=== PATIENT | male | born 1960 | race Caucasian/White ===

== ENCOUNTER 2019-06-18 22:54 | Emergency (ER) | payer BC ==
[2019-06-18] MEDS ORDERED: Ketorolac 30 MG/ML SDV IVPUSH ONE (23:50)
[2019-06-18] MEDS ORDERED: Sodium Chloride 0.9% 1,000 ML IV ONE (23:50)
--- NOTE | 2019-06-18 23:54 | EDM.PDOC ---
ED HPI GENERAL MEDICAL PROBLEM - General Chief Complaint: Abdominal Pain Stated Complaint: LEFT LOWER STOMACH PAIN Time Seen by Provider: 06/18/19 23:53 Source of Information: Reports: Patient History Limitations: Reports: No Limitations - History of Present Illness INITIAL COMMENTS - FREE TEXT/NARRATIVE: 58 year-old male who presents the emergency room with a chief complaint of left lower abdominal pain. Patient denies chills and fever but states the pain is been progressively getting worse. Patient has no past medical history of abdominal surgery or any abdominal pain. Patient does state that he urinates a lot. Onset: Today Duration: Day(s): Location: Reports: Abdomen Quality: Reports: Ache Severity: Moderate Improves with: Reports: None Worsens with: Reports: None Associated Symptoms: Reports: No Other Symptoms Left Abdomen Pain Score (Numeric/FACES): 1 - Related Data Allergies Allergy/AdvReac Type Severity Reaction Status Date / Time latex Allergy Rash Verified 06/18/19 23:10 Home Meds: Home Meds . [No Known Home Meds] 06/18/19 [History] Past Medical History - Infectious Disease History Infectious Disease History: Reports: Chicken Pox, Mumps - Past Surgical History HEENT Surgical History: Reports: Oral Surgery Musculoskeletal Surgical History: Reports: Other (See Below) Other Musculoskeletal Surgeries/Procedures:: knee surgery bilaterally Social & Family History - Family History Family Medical History: Noncontributory - Tobacco Use Smoking Status *Q: Former Smoker Used Tobacco, but Quit: Yes Month/Year Tobacco Last Used: 2010 - Caffeine Use Caffeine Use: Reports: Coffee, Energy Drinks, Soda, Tea - Recreational Drug Use Recreational Drug Use: No ED ROS GENERAL - Review of Systems Review Of Systems: See Below Constitutional: Reports: No Symptoms HEENT: Reports: No Symptoms Respiratory: Reports: No Symptoms Cardiovascular: Reports: No Symptoms Endocrine: Reports: No Symptoms GI/Abdominal: Reports: No Symptoms, Abdominal Pain : Reports: No Symptoms Musculoskeletal: Reports: No Symptoms Skin: Reports: No Symptoms Neurological: Reports: No Symptoms Psychiatric: Reports: No Symptoms Hematologic/Lymphatic: Reports: No Symptoms Immunologic: Reports: No Symptoms ED EXAM, GI/ABD - Physical Exam Exam: See Below Text/Narrative:: 58-year-old gentleman who presents the emergency room with a chief complaint of left lower abdominal pain. Patient denies chills and fever. Exam is related mostly to the abdomen. Patient has left lower quadrant pain and tenderness. Minimal guarding negative rebound. Patient has normal active bowel sounds. Patient has negative flank tenderness Problems patient is possible 1. Diverticulitis Possible kidney stone : Possible constipation Possible hernia Plan: We will have a CT scan/UA Exam Limited By: No Limitations General Appearance: Alert, WD/WN, No Apparent Distress Eyes: Bilateral: Normal Appearance Ears: Normal External Exam, Normal Canal, Normal TMs Nose: Normal Inspection, Normal Mucosa Throat/Mouth: Normal Inspection, Normal Lips, Normal Oropharynx, Normal Voice Head: Atraumatic, Normocephalic Neck: Normal Inspection, Supple, Non-Tender Respiratory/Chest: No Respiratory Distress, Lungs Clear, Normal Breath Sounds, No Accessory Muscle Use, Chest Non-Tender Cardiovascular: Normal Peripheral Pulses, Regular Rate, Rhythm, No JVD, No Murmur GI/Abdominal Exam: Normal Bowel Sounds, Tender (Male) Exam: Deferred Rectal (Males) Exam: Deferred Back Exam: Normal Inspection, Full Range of Motion Extremities: Normal Inspection, Normal Range of Motion, No Pedal Edema, Normal Capillary Refill Neurological: Alert, Oriented, Normal Reflexes Psychiatric: Normal Affect, Normal Mood Skin Exam: Warm, Dry, Intact, Normal Color Lymphatic: No Adenopathy Course - Vital Signs Text/Narrative:: This 58-year-old gentleman presented to the emergency room with a chief complaint of abdominal pain left-sided. Patient found to have a white count of 12.7. Patient's electrolytes are normal. Patient's exam shows that he has left -sided abdominal pain and tenderness. Patient has no evidence of rebound. Patient CT scan shows patient has acute diverticulitis. Patient has been afebrile. Patient is awake alert and oriented. Patient has no comorbidities i.e. no history of diabetes, hypertension, immunosuppression. Patient states he is able to take fluids and medication. Patient will be treated with 500 of Flagyl, 500 of Cipro here p.o. And another 500 cc of normal saline. Patient has been given Toradol for pain and a liter of fluid. Repeat exam: Abdomen mildly tender to the left side with no rebound. Patient has no evidence of peritoneal signs or perforation Plan: Patient will be discharged home we will attempt to get the patient clinic appointment with her primary physician Patient instructed to take his antibiotics at home and return for any problem to the ER if unable to keep down fluids or take antibiotics or pain becomes more severe. Diagnosis acute diverticulitis Patient does not meet criteria for inpatient therapy and does not want to be admitted to the hospital. Patient given the option for observation and does not want to be admitted Last Recorded V/S: Last Vital Signs Temp 97.3 F 06/18/19 23:11 Pulse 81 06/19/19 00:59 Resp 16 06/19/19 00:59 BP 117/76 06/19/19 00:59 Pulse Ox 94 L 06/19/19 00:59 - Orders/Labs/Meds Orders: Active Orders 24 hr Category Date Time Status Sodium Chloride 0.9% [Normal Saline] 500 ml Med 06/19/19 01:30 Active IV .BOLUS metroNIDAZOLE/Normal Saline [Flagyl 500 MG in NS 100 ML Med 06/19/19 01:15 Active ] 500 mg Premix Bag 1 bag IV ONETIME Medication Orders Metronidazole 500 mg/ Premix 100 mls @ 100 mls/hr IV ONETIME ONE Stop: 06/19/19 02:14 Sodium Chloride (Normal Saline) 500 mls @ 500 drops/min IV .BOLUS JOSI Labs: Laboratory Tests 06/18/19 06/18/19 06/18/19 Range/Units 23:40 23:49 23:49 WBC 12.73 H (4.0-11.0) K/uL RBC 4.83 (4.50-5.90) M/uL Hgb 15.8 (13.0-17.0) g/dL Hct 45.6 (38.0-50.0) % MCV 94.4 (80.0-98.0) fL MCH 32.7 H (27.0-32.0) pg MCHC 34.6 (31.0-37.0) g/dL RDW Std Deviation 44.0 (28.0-62.0) fl RDW Coeff of Phi 13 (11.0-15.0) % Plt Count 251 (150-400) K/uL MPV 9.80 (7.40-12.00) fL Neut % (Auto) 55.7 (48.0-80.0) % Lymph % (Auto) 34.6 (16.0-40.0) % [place] % (Auto) 7.6 (0.0-15.0) % Eos % (Auto) 1.8 (0.0-7.0) % Baso % (Auto) 0.3 (0.0-1.5) % Neut # (Auto) 7.1 H (1.4-5.7) K/uL Lymph # (Auto) 4.4 H (0.6-2.4) K/uL [place] # (Auto) 1.0 H (0.0-0.8) K/uL Eos # (Auto) 0.2 (0.0-0.7) K/uL Baso # (Auto) 0.0 (0.0-0.1) K/uL Nucleated RBC % 0.0 /100WBC Nucleated RBCs # 0 K/uL Sodium 140 (136-148) mmol/L Potassium 4.5 (3.5-5.1) mmol/L Chloride 101 (98-107) mmol/L Carbon Dioxide 30.3 (21.0-32.0) mmol/L BUN 11 (7.0-18.0) mg/dL Creatinine 1.1 (0.8-1.3) mg/dL Est Cr Clr Drug Dosing 69.95 mL/min Estimated GFR (MDRD) > 60.0 ml/min Glucose 106 (74-106) mg/dL Calcium 8.8 (8.5-10.1) mg/dL Total Bilirubin 0.3 (0.2-1.0) mg/dL AST 20 (15-37) IU/L ALT 32 (14-63) IU/L Alkaline Phosphatase 78 (46-116) U/L Total Protein 7.3 (6.4-8.2) g/dL Albumin 3.8 (3.4-5.0) g/dL Globulin 3.5 (2.6-4.0) g/dL Albumin/Globulin Ratio 1.1 (0.9-1.6) Urine Color YELLOW Urine Appearance CLEAR Urine pH 7.0 (5.0-8.0) Ur Specific [place] 1.020 (1.001-1.035) Urine Protein NEGATIVE (NEGATIVE) mg/dL Urine Glucose (UA) NEGATIVE (NEGATIVE) mg/dL Urine Ketones TRACE H (NEGATIVE) mg/dL Urine Occult Blood NEGATIVE (NEGATIVE) Urine Nitrite NEGATIVE (NEGATIVE) Urine Bilirubin NEGATIVE (NEGATIVE) Urine Urobilinogen 1.0 (<2.0) EU/dL Ur Leukocyte Esterase NEGATIVE (NEGATIVE) Meds: Medications Generic Name Dose Route Start Last Admin Trade Name Freq PRN Reason Stop Dose Admin Metronidazole 500 mg/ Premix 100 mls @ 100 mls/hr 06/19/19 01:15 IV 06/19/19 02:14 ONETIME ONE Sodium Chloride 500 mls @ 500 drops/min 06/19/19 01:30 Normal Saline IV .BOLUS JOSI Discontinued Medications Generic Name Dose Route Start Last Admin Trade Name Freq PRN Reason Stop Dose Admin Ciprofloxacin 500 mg 06/19/19 01:14 Ciprofloxacin Hcl PO 06/19/19 01:15 ONETIME ONE Sodium Chloride 1,000 mls @ 1,000 mls/hr 06/18/19 23:50 06/18/19 23:55 Normal Saline IV 06/19/19 00:49 1,000 mls/hr .Bolus ONE Administration Ketorolac Tromethamine 30 mg 06/18/19 23:50 06/18/19 23:55 Toradol IVPUSH 06/18/19 23:51 30 mg ONETIME ONE Administration Departure - Departure Time of Disposition: 01:48 Disposition: Home, Self-Care 01 Condition: Good Clinical Impression: Diverticulitis large intestine w/o perforation or abscess w/o bleeding - Discharge Information Instructions: Diverticulitis, Diverticulitis, [id number] Referrals: PCP,Not In Area [Ordering Only Provider] - Forms: ED Department Discharge Sepsis Event Note - Evaluation Sepsis Screening Result: No Definite Risk - Focused Exam Vital Signs: Vital Signs Temp Pulse Resp BP Pulse Ox 06/19/19 00:59 81 16 117/76 94 L 06/18/19 23:11 97.3 F 89 18 133/80 94 L Date Exam was Performed: 06/19/19 Time Exam was Performed: 01:42 - My Orders Last 24 Hours: My Active Orders 06/19/19 01:15 metroNIDAZOLE/Normal Saline [Flagyl 500 MG in NS 100 ML] 500 mg Premix Bag 1 bag IV ONETIME 06/19/19 01:30 Sodium Chloride 0.9% [Normal Saline] 500 ml IV .BOLUS - Assessment/Plan Last 24 Hours: My Active Orders 06/19/19 01:15 metroNIDAZOLE/Normal Saline [Flagyl 500 MG in NS 100 ML] 500 mg Premix Bag 1 bag IV ONETIME 06/19/19 01:30 Sodium Chloride 0.9% [Normal Saline] 500 ml IV .BOLUS
[2019-06-19 00:34] LABS: BLOOD UREA NITROGEN,BUN 11 mg/dL (7.0-18.0); CARBON DIOXIDE,CO2 30.3 mmol/L (21.0-32.0); CHLORIDE,CL 101 mmol/L (98-107); GLUCOSE RANDOM 106 mg/dL (74-106); POTASSIUM,K 4.5 mmol/L (3.5-5.1); SODIUM,NA 140 mmol/L (136-148)
--- NOTE | 2019-06-19 00:54 | CT ---
INDICATION: Left flank pain TECHNIQUE: CT abdomen and pelvis without contrast. COMPARISON: None available FINDINGS: The visualized portions of the lung bases are clear. Evaluation of the abdominal viscera is limited due to lack of IV contrast. There are punctate calcifications within the liver and spleen, likely sequelae of prior granulomatous disease. The spleen and pancreas are otherwise unremarkable. Negative for intrahepatic or extrahepatic biliary dilatation. The gallbladder is nondistended. These pancreas and adrenal glands are unremarkable. The kidneys are negative for hydronephrosis or nephrolithiasis. There are multiple colonic diverticuli. There is mild colonic wall thickening of the distal descending colon with surrounding fat stranding, consistent with acute diverticulitis. No drainable fluid collection. No gross perforation is visualized. There are no dilated loops of small bowel to suggest obstruction.The appendix is normal. There are healed fracture deformities of the left lateral lower ribs. The bones are otherwise unremarkable for patient age. IMPRESSION: Acute diverticulitis of the distal descending colon. Negative for gross perforation or drainable fluid collection. Recommend colonoscopy after acute symptoms resolve. Dictated by Kathi Miller MD @ 06/19/2019 12:52:28 AM Please note that all CT scans at this facility use dose modulation, iterative reconstruction, and/or weight-based dosing when appropriate to reduce radiation dose to as low as reasonably achievable. Dictated by: Kathi Miller MD @ 06/19/2019 00:52:46 (Electronically Signed)
[2019-06-19] MEDS ORDERED: Ciprofloxacin 500 MG Tab PO ONE (01:14)
[2019-06-19] MEDS ORDERED: metroNIDAZOLE/Normal Saline 500 MG in Premix Bag 1 BAG IV ONE (01:15)
[2019-06-19] MEDS ORDERED: Sodium Chloride 0.9% 500 ML IV SCH (01:30)
== END 2019-06-19 03:30 | disposition home or self-care (01) ==
LOC: MW.ED 22:54
DX: K57.32 Diverticulitis of large intestine without perforation or abscess without bleeding (principal); Z87.891 Personal history of nicotine dependence; Z91.040 Latex allergy status
CPT/HCPCS: 36415; 74176; 80053; 81003; 85025; 96361; 96365; 96375; 99284; A9270; J1885; J3490; J7030; J7040; 99283